=== PATIENT | male | born 1970 | race American Indian/Alaskan Native ===

== ENCOUNTER 2017-02-24 12:58 | Emergency (ER) | payer BC ==
[2017-02-24 13:14] VITALS: O2SAT 97
[2017-02-24] MEDS ORDERED: Enalaprilat 2.5 MG/2 ML IV STA (13:25)
[2017-02-24] MEDS ORDERED: Enalaprilat 2.5 MG/2 ML ONE (13:44)
[2017-02-24 13:52] LABS: BASO % 0.2 % (0.0-2.0); EOS # 0.2 K/uL (0.0-0.7); EOS % 2.6 % (0.0-4.0); HEMATOCRIT 43.6 % (35.0-51.0); LYMPH # 2.2 K/uL (1.0-4.3); LYMPH % 34.9 % (20.0-40.0); MEAN CELL VOLUME 90.4 fL (80.0-94.0); MEAN CORPUSCULAR HEMOGLOBIN 30.7 pg (27.0-31.0); MEAN PLATELET VOLUME 8.1 fL (7.2-11.7); MONO # 0.6 K/uL (0.0-0.8); MONO % 8.9 % (0.0-10.0); WHITE BLOOD COUNT 6.4 K/uL (4.8-10.8)
[2017-02-24 14:10] LABS: CHLORIDE 97 mmol/L (98-107); POTASSIUM 3.5 mmol/L (3.6-5.2); SODIUM 139 mmol/L (132-148)
[2017-02-24 14:12] LABS: AST/SGOT 32 U/L (17-59); BILIRUBIN,TOTAL 1.7 mg/dL (0.2-1.3); CARBON DIOXIDE 33 mmol/L (22-30); GFR AFRICAN-AMERICAN > 60; TOTAL PROTEIN 8.3 g/dL (6.3-8.3)
[2017-02-24 14:13] LABS: ALKALINE PHOSPHATASE 46 U/L (38-126); ALT/SGPT 51 U/L (21-72); BLOOD UREA NITROGEN 14 mg/dL (9-20); CALCIUM 9.5 mg/dl (8.6-10.4); GLUCOSE,RANDOM 89 mg/dL (75-110); MAGNESIUM 1.5 mg/dL (1.6-2.3)
[2017-02-24] MEDS ORDERED: Potassium Chloride 20 mEq/15 ml LIQ UD PO STA (14:22)
[2017-02-24] MEDS ORDERED: Magnesium Sulfate 1 gm in D5W 1 GM/100 ML BAG IVPB STA (14:22)
[2017-02-24] MEDS ORDERED: Potassium Chloride 20 mEq ER Tab PO ONE (14:28)
--- NOTE | 2017-02-24 15:56 | C.PDOC ---
Time Seen by Provider: 02/24/17 13:14 Chief Complaint (Nursing): High Blood Pressure History Per: Patient, Family Onset/Duration Of Symptoms: Days Current Symptoms Are (Timing): Still Present Associated Symptoms: Other (left eye twitching?). denies: Chest Pain, Dyspnea, Focal Weakness Severity: Severe Exacerbating Factor(s): Pos: None Additional History Per: Prior Records Past Medical History Reviewed: Historical Data, Nursing Documentation, Vital Signs Vital Signs: Last Vital Signs Temp 97.8 F 02/24/17 13:13 Pulse 77 02/24/17 14:30 Resp 12 02/24/17 14:30 BP 185/109 H 02/24/17 16:19 Pulse Ox 97 02/24/17 15:56 - Medical History PMH: HTN (Not on any medications) Family History: States: Unknown Family Hx - Social History Hx Tobacco Use: No Hx Alcohol Use: No Hx Substance Use: No - Immunization History Hx Tetanus Toxoid Vaccination: No Hx Influenza Vaccination: No Hx Pneumococcal Vaccination: No Review Of Systems Except As Marked, All Systems Reviewed And Found Negative. Constitutional: Negative for: Fever Eyes: Negative for: Vision Change Cardiovascular: Negative for: Chest Pain Respiratory: Negative for: Shortness of Breath Gastrointestinal: Negative for: Vomiting, Abdominal Pain Genitourinary: Negative for: Dysuria Musculoskeletal: Negative for: Neck Pain Skin: Negative for: Rash Neurological: Negative for: Weakness, Numbness, Incoordination, Change in Speech , Confusion, Seizures, Altered Mental Status, Headache, Dizziness Physical Exam - Physical Exam Appears: Non-toxic, No Acute Distress Skin: Normal Color, Warm, Dry, No Rash Head: Atraumatic, Normacephalic Eye(s): bilateral: Normal Inspection, PERRL, EOMI Neck: Normal ROM, Supple Cardiovascular: Rhythm Regular Respiratory: Normal Breath Sounds, No Accessory Muscle Use Gastrointestinal/Abdominal: Soft, No Tenderness Back: No CVA Tenderness Extremity: Normal ROM, No Pedal Edema Neurological/Psych: Oriented x3, Normal Speech, Normal Cognition, Normal Cranial Nerves, No Cerebellar Signs, Normal Motor, Normal Sensation ED Course And Treatment - Laboratory Results Result Diagrams: 02/24/17 13:43 02/24/17 13:43 ECG: Interpreted By Me, Viewed By Me ECG Rhythm: Sinus Rhythm, Nonspecific Changes ECG Interpretation: No Acute Changes Rate From EC O2 Sat by Pulse Oximetry: 97 Pulse Ox Interpretation: Normal Progress - Interventions Interventions:: Observation - Medications Administered Oral: Antihypertensive, Other (KCl) Intravenous: Antihypertensive, Other (Mg) - Data Reviewed Data Reviewed: Lab, Old records - Patient Status Patient status: Mostly improved - Critical Care Citical Care: Excluding Proc Time Critical Care Time: 45 minutes - Continuity of Care Discussed patient case with:: Patient, Family-HIPPA compliant, ED Nurse - Patient Plan Patient Plan: Discharge, F/U with PCP Disposition Counseled Patient/Family Regarding: Studies Performed, Diagnosis, Need For Followup, Rx Given - Disposition Disposition: HOME/ ROUTINE Disposition Time: 17:18 Condition: IMPROVED Additional Instructions: Follow up with a primary doctor this week for further evaluation and treatment. Return to the ER if you develop weakness, numbness, chest pain, shortness of breath, change in vision, worsening of symptoms or if you have any other concerns. Prescriptions: hydroCHLOROthiazide [Hydrodiuril] 25 mg PO DAILY #30 tab Instructions: Hypertension (ED) Forms: [employer] [facility] (Telugu) - Clinical Impression Clinical Impression: Hypertensive urgency
[2017-02-24 17:34] VITALS: BP 164/93; PULSE 70; RESP 20; TEMP 97.3
--- NOTE | 2017-02-26 17:40 | CARD ---
APPROVED REPORT EKG Measurement Heart [id number] <Conclusion> Normal sinus rhythm Minimal voltage criteria for LVH, may be normal variant Nonspecific T wave abnormality Abnormal ECG
== END 2017-02-24 17:40 | disposition home or self-care (01) ==
LOC: C.ER 12:58
DX: I16.0 Hypertensive urgency (principal); I10 Essential (primary) hypertension
CPT/HCPCS: 80053; 83735; 85025; 93005; 96365; 99285; J3475

== ENCOUNTER 2017-08-04 12:14 | Emergency (ER) | payer BC ==
[2017-08-04 12:24] VITALS: BMI 38.9
[2017-08-04 12:27] VITALS: O2SAT 99
--- NOTE | 2017-08-04 14:15 | RAD ---
HISTORY: r/o infiltrate COMPARISON: No prior. TECHNIQUE: Chest PA and lateral FINDINGS: LUNGS: No active pulmonary disease. PLEURA: No radiographic findings to suggest acute or significant cardiovascular disease. CARDIOVASCULAR: Normal. OSSEOUS STRUCTURES: No significant abnormalities. VISUALIZED UPPER ABDOMEN: Normal. OTHER FINDINGS: None. IMPRESSION: No active disease.
[2017-08-04 14:37] VITALS: BP 179/135; PULSE 81; RESP 18; TEMP 98.3
--- NOTE | 2017-08-04 14:37 | C.PDOC ---
History Of Present Illness 46 y/o male presents to ED with complaints of dry cough for 1 week. Patient has history of HTN but is non compliant with medications and denies fever, chest pain, sob, headache, blurry vision, double vision or any other complaints at this time. Chief Complaint (Nursing): Cough, Cold, Congestion History Per: Patient History/Exam Limitations: no limitations Onset/Duration Of Symptoms: Days Current Symptoms Are (Timing): Still Present Associated Symptoms: Cough Past Medical History Reviewed: Historical Data, Nursing Documentation, Vital Signs Vital Signs: Last Vital Signs Temp 98.3 F 08/04/17 14:36 Pulse 81 08/04/17 14:36 Resp 18 08/04/17 14:36 BP 179/135 H 08/04/17 14:36 Pulse Ox 99 08/04/17 14:40 - Medical History PMH: HTN (Not on any medications) Surgical History: No Surg Hx Family History: States: No Known Family Hx - Social History Hx Tobacco Use: No Hx Alcohol Use: No Hx Substance Use: No - Immunization History Hx Tetanus Toxoid Vaccination: No Hx Influenza Vaccination: No Hx Pneumococcal Vaccination: No Review Of Systems Constitutional: Negative for: Fever, Chills Eyes: Negative for: Vision Change Cardiovascular: Negative for: Chest Pain Respiratory: Positive for: Cough. Negative for: Shortness of Breath Gastrointestinal: Negative for: Nausea, Vomiting Skin: Negative for: Rash Physical Exam - Physical Exam Appears: Non-toxic, No Acute Distress Skin: Warm, Dry, No Rash Head: Atraumatic, Normacephalic Eye(s): bilateral: Normal Inspection Ear(s): Bilateral: Normal Oral Mucosa: Moist Throat: Normal, No Erythema, No Exudate Neck: Normal ROM, Supple Cardiovascular: Rhythm Regular Respiratory: Normal Breath Sounds, No Rales, No Rhonchi, No Wheezing Gastrointestinal/Abdominal: Soft, No Tenderness, No Guarding, No Rebound Extremity: Normal ROM, No Pedal Edema, Capillary Refill (<2 seconds) Neurological/Psych: Oriented x3, Normal Speech, Normal Cognition ED Course And Treatment O2 Sat by Pulse Oximetry: 99 (RA) Pulse Ox Interpretation: Normal Disposition - Disposition Referrals: [facility] [employer] [facility] [Outside] [facility] [Outside] Disposition: HOME/ ROUTINE Disposition Time: 13:30 Condition: GOOD Additional Instructions: Thank you for letting us take care of you today. The emergency medical care you received today was directed at your acute symptoms. If you were prescribed any medication, please fill it and take as directed. It may take several days for your symptoms to resolve. Return to the Emergency Department if your symptoms worsen, do not improve, or if you have any other problems. Please contact your doctor or call one of the physicians/clinics you have been referred to that are listed on the Patient Visit Information form that is included in your discharge packet. Bring any paperwork you were given at discharge with you along with any medications you are taking to your follow up visit. Our treatment cannot replace ongoing medical care by a primary care provider (PCP) outside of the emergency department. Thank you for allowing the [facility] team to be part of your care today. TAKE YOUR BLOOD PRESSURE MEDICATION! Follow up in the clinic in 2-3 days for re-evaluation and further management. Prescriptions: Azithromycin [Zithromax] 250 mg PO DAILY #6 tab hydroCHLOROthiazide [Hydrodiuril] 25 mg PO DAILY #14 tab Instructions: High Blood Pressure in Adults, Cough, Adult (DC) Forms: [employer] (Persian), Work Excuse - Clinical Impression Clinical Impression: Hypertension, Upper respiratory infection - Scribe Statement The provider has reviewed the documentation as recorded by the Martellibaby Gleason All medical record entries made by the Martellibaby were at my direction and personally dictated by me. I have reviewed the chart and agree that the record accurately reflects my personal performance of the history, physical exam, medical decision making, and the department course for this patient. I have also personally directed, reviewed, and agree with the discharge instructions and disposition.
== END 2017-08-04 14:41 | disposition home or self-care (01) ==
LOC: C.ER 12:14
DX: J06.9 Acute upper respiratory infection, unspecified (principal); I10 Essential (primary) hypertension; Z91.14 Patient's other noncompliance with medication regimen

== ENCOUNTER 2017-09-25 13:36 | Emergency (ER) | payer BC ==
[2017-09-25 13:36] VITALS: BMI 38.9
[2017-09-25 13:44] VITALS: TEMP 97.7
--- NOTE | 2017-09-25 14:03 | C.PDOC ---
History Of Present Illness 46 years old male with history of hypertension presents to the ED for evaluation of left ankle pain onset 2 days. Patient reports he has been limping on his left leg since he has twisted his right ankle a week ago when he was leaving from work. He states pain worsens with applying pressure. PMD: non provided Time Seen by Provider: 09/25/17 13:58 Chief Complaint (Nursing): Lower Extremity Problem/Injury History Per: Patient History/Exam Limitations: no limitations Onset/Duration Of Symptoms: Days (2) - Ankle/Foot Description Of Injury: Twisted (left) Past Medical History Reviewed: Historical Data, Nursing Documentation, Vital Signs Vital Signs: Last Vital Signs Temp 97.7 F 09/25/17 13:41 Pulse 89 09/25/17 13:41 Resp 20 09/25/17 13:41 BP 152/94 H 09/25/17 13:41 Pulse Ox 18 L 09/25/17 14:11 - Medical History PMH: HTN (Not on any medications) Surgical History: No Surg Hx Family History: States: Unknown Family Hx - Social History Hx Tobacco Use: No Hx Alcohol Use: No Hx Substance Use: No - Immunization History Hx Tetanus Toxoid Vaccination: No Hx Influenza Vaccination: No Hx Pneumococcal Vaccination: No Review Of Systems Except As Marked, All Systems Reviewed And Found Negative. Musculoskeletal: Positive for: Leg Pain, Foot Pain (right ankle) Physical Exam - Physical Exam Appears: Non-toxic, No Acute Distress Extremity: Tenderness (bilateral to left and right ankle), Swelling (To left ankle), No Other (Swelling or bruising to right ankle) ED Course And Treatment O2 Sat by Pulse Oximetry: 18 (RA) Pulse Ox Interpretation: Abnormal Medical Decision Making Medical Decision Making: Time: 1400 Initial plan: --Motrin 600 mg PO --Tylenol 325 mg PO --Left Ankle Rad Disposition Counseled Patient/Family Regarding: Studies Performed, Diagnosis - Disposition Referrals: Fadi Guerrero MD [Staff Provider] - Disposition: HOME/ ROUTINE Disposition Time: 15:40 Condition: STABLE Prescriptions: Ibuprofen [Motrin] 600 mg PO TID #15 tab Instructions: Ankle Sprain (DC) Forms: [employer] (Latvian), General Discharge Instructions, Work Excuse - Clinical Impression Clinical Impression: Left ankle sprain - Scribe Statement The provider has reviewed the documentation as recorded by the Scribe Mirlande Caebllo
--- NOTE | 2017-09-25 15:04 | RAD ---
PROCEDURE: Left Ankle Radiographs. HISTORY: Sprain; rule out fracture. COMPARISON: None FINDINGS: BONES: No evidence of acute displaced fracture nor dislocation. Corticated bony densities within the soft tissues subjacent to and abutting the inferior tip of the medial malleolus could represent some old posttraumatic mineralization or old incompletely fused avulsion fracture injuries. There may also be a a similar focus corticated bony density adjacent to the inferior tip of the medial malleolus and/or bony productive change arising from and projecting inferiorly from the tip of the lateral malleolus. Ankle mortise maintained. Talar dome intact. Small plantar and posterior calcaneal enthesophytes are present. JOINTS: Ankle mortise maintained however there is mild degenerative osteoarthritis SOFT TISSUES: Mild diffuse soft tissue swelling. OTHER FINDINGS: None. IMPRESSION: No acute fractures. Questionable chronic posttraumatic mineralization and/or chronic avulsion injuries involving the inferior margins of the medial and lateral malleoli as described. Degenerative osteoarthritis. Mild the diffuse soft tissue swelling
[2017-09-25 15:46] VITALS: BP 148/86; PULSE 81; RESP 16; O2SAT 98
== END 2017-09-25 15:45 | disposition home or self-care (01) ==
LOC: C.ER 13:36
DX: S93.402A Sprain of unspecified ligament of left ankle, initial encounter (principal); X50.9XXA Other and unspecified overexertion or strenuous movements or postures, initial encounter; Y92.89 Other specified places as the place of occurrence of the external cause; Y99.0 Civilian activity done for income or pay
CPT/HCPCS: 73610; 97116; 97161; 99283; G8978; G8979; G8980